=== PATIENT | female | born 1965 | race Caucasian/White ===

== ENCOUNTER 2020-10-05 06:01 | Outpatient (REF) | payer OTHER, SELFPAY ==
[2020-10-05 07:57] LABS: MANUAL DIFF FLAG NO
[2020-10-05 08:08] LABS: Basophils Percent Auto 0.2 % (0-2); Eosinophils Absolute Auto 0.1 X10*3/uL (0.0-0.4); Eosinophils Percent Auto 1.2 % (0-4); Hematocrit 31.7 % (37-47); Imm Gran Abs Auto 0.06 X10*3/uL (0.00-0.03); Imm Gran Pct Auto 1.2 % (0.0-0.4); Lymphocytes Absolute Auto 1.2 X10*3/uL (1.2-4.9); Lymphocytes Percent Auto 23.4 % (20-40); Mean Corpuscular HGB Conc 31.5 g/dl (31.0-35.0); Mean Corpuscular Hemoglobin 28.7 pg (27.0-33.0); Mean Corpuscular Volume 91.1 fL (80-98); Mean Platelet Volume 10.4 fL (9.4-12.3); Monocytes Absolute Auto 0.4 X10*3/uL (0.1-1.2); Monocytes Percent Auto 6.7 % (2-11); Neutrophils Absolute Auto 3.5 X10*3/uL (2.0-8.3); Neutrophils Percent Auto 67.3 % (45-73); Platelet Count 161 X10*3/uL (160-400); Red Blood Count 3.48 X10*6/uL (4.20-5.50); Red Cell Distribution Width 14.6 % (11.0-16.0); White Blood Count 5.2 X10*3/uL (4.8-10.8)
[2020-10-05 08:24] LABS: Albumin Level 1.8 g/dL (3.5-5.0)
[2020-10-05 08:27] LABS: Alanine Aminotransferase 15 U/L (0-31); Albumin Level 1.8 g/dL (3.5-5.0); Alkaline Phosphatase 216 U/L (39-117); Anion Gap 11 (12-20); Aspartate Amino Transferase 25 U/L (5-31); Bilirubin Total 0.7 mg/dL (0.0-1.0); Blood Urea Nitrogen 15 mg/dL (9-16); Carbon Dioxide 26 mmol/L (22-29); Chloride 104 mmol/L (96-108); Estimated Glomerular Filt Rate 38; Glucose Random 111 mg/dL (60-115); Potassium 4.3 mmol/l (3.3-5.1); Sodium 137 mmol/L (135-145); Total Protein 4.6 g/dL (6.5-8.0)
[2020-10-05 08:35] LABS: Calcium 7.2 mg/dL (8.4-10.2)
== END 2020-10-05 06:02 | disposition home or self-care (01) ==
LOC: HO.LAB 06:01
PROVIDERS: Absent Provider Colon & Rectal Surgery; PCP Nurse Practitioner Family; Visit Provider Internal Medicine
DX: Z20.828 Contact with and (suspected) exposure to other viral communicable diseases (principal); K63.2 Fistula of intestine; Z93.2 Ileostomy status
CPT/HCPCS: 36415; 80053; 82040; 85025; C9803; U0003

== ENCOUNTER 2020-10-06 15:07 | Outpatient (REF) | payer OTHER, SELFPAY ==
[2020-10-06 15:28] LABS: COVID-19 Test Negative (Negative)
== END 2020-10-06 15:08 | disposition home or self-care (01) ==
LOC: HO.LAB 15:07
PROVIDERS: Visit Provider Colon & Rectal Surgery
DX: Z20.828 Contact with and (suspected) exposure to other viral communicable diseases (principal)
CPT/HCPCS: 87635; C9803

== ENCOUNTER 2020-10-12 09:13 | Outpatient (REF) | payer OTHER, SELFPAY ==
--- NOTE | 2020-10-12 09:17 | FL_ITS ---
EXAMINATION: XR BARIUM ENEMA CLINICAL INFORMATION: Intestinal fistula. Follow up. COMPARISON: Barium enema 09/11/2019. TECHNIQUE: A single KUB was obtained. Subsequently balloon-inflated rectal tube was inserted and a 50/50 diluted Gastrografin was inserted. Retrograde images obtained under fluoroscopy and overhead. FINDINGS: On KUB there is a right nephrostomy catheter in place. The bowel gas pattern is nonspecific. There is intramedullary right femoral leilani and a hip nail for an old healed femoral fracture. Following retrograde administration diluted Gastrografin through a balloon-inflated rectal tube there is good opacification of the rectum and the sigmoid colon. There is spontaneous fistulous communication with the small bowel. Significant fluid is seen extending through the fistula into the small bowel loops. There is also retrograde flow seen through the descending and transverse colon to the level of hepatic flexure. Any further Gastrografin insertion resulted in significant abdominal pain and the exam was stopped. The Gastrografin was drained and post evacuation images were obtained and revealed residual Gastrografin in the colon. The ascending colon was not opacified. Contrast could not be extended into right ileostomy/colostomy. FLUOROSCOPY TIME: 2.9 minutes. DOSE AREA PRODUCT: 30.355 uGy-m2 (microgray-meter squared). 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
[2020-10-12] MEDS: Diatrizoate Meglumine, Sodium 120 ML SOLUTION 810 ML PR (11:55)
== END 2020-10-12 09:14 | disposition home or self-care (01) ==
LOC: HO.XRAY 09:13
PROVIDERS: PCP Nurse Practitioner Family; Visit Provider Nurse Practitioner
DX: K63.2 Fistula of intestine (principal)
CPT/HCPCS: 74270